=== PATIENT | male | born 1945 | race Caucasian/White ===

== ENCOUNTER 2016-05-26 13:04 | Emergency (ER) | payer OTHER ==
[2016-05-26 14:02] LABS: #Basophils 0.1 thou/uL (0.0-0.2); #Lymphocytes 1.5 thou/uL (1.20-3.40); #Monocytes 0.7 thou/uL (0.11-0.59); #Neutrophils 5.1 thou/uL (1.40-6.50); %Basophils 0.7 % (0.0-1.0); %Eosinophils 0.4 % (0.0-10.0); %Monocytes 9.4 % (0.0-10.0); Hematocrit 39.4 % (42.0-52.0); Mean Platelet Volume 6.3 fL (7.4-10.4); Red Blood Cell (RBC) Count 4.27 mill/uL (4.70-6.10); White Blood Cell (WBC) Count 7.3 thou/uL (4.8-10.8)
[2016-05-26] MEDS ORDERED: Meclizine HCl 25 MG TAB ONE (14:11)
[2016-05-26 14:21] LABS: ALT (SGPT) 26 U/L (0-55); AST (SGOT) 22 U/L (5-34); Alkaline Phosphatase 82 U/L (40-150); Anion Gap 17 mmol/L (10-20); BUN (Urea Nitrogen) 17 mg/dL (8.4-25.7); Bilirubin, Total 0.5 mg/dL (0.2-1.2); Calc. Creatinine Clearance 0 mL/min (70-130); Calcium 9.7 mg/dL (7.8-10.44); Carbon Dioxide 25 mmol/L (23-31); Chloride 100 mmol/L (98-107); Estimated GFR-MDRD 88; Globulin 3.1 g/dL (2.4-3.5); Protein, Total 7.2 g/dL (5.8-8.1)
[2016-05-26 14:23] LABS: Troponin I 0.017 ng/mL (< 0.028)
--- NOTE | 2016-05-26 14:36 | CT ---
CT BRAIN WITHOUT CONTRAST: Date: 05/26/16 HISTORY: Dizziness, lightheadedness, rubbery feeling legs. COMPARISON: [facility]. TECHNIQUE: CT brain performed without contrast. 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 Ventricular system is normal. No midline shift or mass effect. No acut e territorial infarct or hemorrhage. Calvarium is intact. The paranasal sinuses and mastoids are angeline ar. 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 No definite acute infarction or hemorrhag e. POS: [facility]
== END 2016-05-26 14:55 | disposition home or self-care (01) ==
LOC: EDBD 13:04 → NAV ERS 13:04
DX: H81.391 Other peripheral vertigo, right ear (principal); I10 Essential (primary) hypertension; I25.10 Atherosclerotic heart disease of native coronary artery without angina pectoris; E11.9 Type 2 diabetes mellitus without complications; E78.5 Hyperlipidemia, unspecified; Z79.84 Long term (current) use of oral hypoglycemic drugs; Z79.82 Long term (current) use of aspirin; Z79.899 Other long term (current) drug therapy
CPT/HCPCS: 70450; 80053; 82553; 84484; 85025; 93005

== ENCOUNTER 2016-07-27 14:19 | Emergency (ER) | payer OTHER | END 2016-07-27 14:59 | disposition home or self-care (01) | LOC: NAV ERS 14:19 | DX: T63.2X1A Toxic effect of venom of scorpion, accidental (unintentional), initial encounter (principal); I25.10 Atherosclerotic heart disease of native coronary artery without angina pectoris; E11.9 Type 2 diabetes mellitus without complications; E78.5 Hyperlipidemia, unspecified; I10 Essential (primary) hypertension; Z79.82 Long term (current) use of aspirin; Z79.84 Long term (current) use of oral hypoglycemic drugs; Z79.899 Other long term (current) drug therapy | CPT/HCPCS: 99282 ==

== ENCOUNTER 2016-09-29 16:18 | Emergency (ER) | payer OTHER ==
[2016-09-29] MEDS ORDERED: Sodium Chloride 0.9% 1,000 ML ONE ×3 (16:40→17:44)
[2016-09-29 17:00] LABS: #Basophils 0.1 thou/uL (0.0-0.2); #Eosinphils 0.1 thou/uL (0.0-0.7); #Lymphocytes 1.6 thou/uL (1.20-3.40); #Monocytes 0.9 thou/uL (0.11-0.59); #Neutrophils 6.2 thou/uL (1.40-6.50); %Basophils 1.6 % (0.0-1.0); %Eosinophils 0.9 % (0.0-10.0); %Lymphocytes 17.7 % (21.0-51.0); %Monocytes 9.8 % (0.0-10.0); %Neutrophils 70.2 % (42.0-75.0); Hemoglobin 13.1 g/dL (14.0-18.0); Mean Corpuscular HGB CONC 32.8 g/dL (32.0-36.0); Mean Corpuscular Hemoglobin 30.4 pg (27.0-31.0); Mean Corpuscular Volume 92.5 fl (80.0-94.0); Mean Platelet Volume 7.2 fL (7.4-10.4); Platelet Count 193 thou/uL (130-400); RBC Distribution Width 12.9 % (11.5-14.5); Red Blood Cell (RBC) Count 4.31 mill/uL (4.70-6.10); White Blood Cell (WBC) Count 8.8 thou/uL (4.8-10.8)
[2016-09-29 17:05] LABS: ALT (SGPT) 24 U/L (8-55); AST (SGOT) 31 U/L (5-34); Albumin 4.5 g/dL (3.4-4.8); Alkaline Phosphatase 77 U/L (40-150); Anion Gap 19 mmol/L (10-20); BUN (Urea Nitrogen) 41 mg/dL (8.4-25.7); Bilirubin, Total 0.7 mg/dL (0.2-1.2); Calc. Creatinine Clearance 0 mL/min (70-130); Calcium 9.9 mg/dL (7.8-10.44); Carbon Dioxide 20 mmol/L (23-31); Chloride 103 mmol/L (98-107); Estimated GFR-MDRD 35; Globulin 3.1 g/dL (2.4-3.5); Glucose 159 mg/dL (83-110); Magnesium 1.9 mg/dL (1.6-2.6); Potassium 4.7 mmol/L (3.5-5.1); Protein, Total 7.6 g/dL (5.8-8.1); Sodium 137 mmol/L (136-145)
[2016-09-29 17:06] LABS: Troponin I Less than 0.010 ng/mL (< 0.028)
[2016-09-29 17:42] LABS: CKMB 13.5 ng/mL (0-6.6)
== END 2016-09-29 19:17 ==
LOC: NAV ERS 16:18
DX: N17.9 Acute kidney failure, unspecified (principal); M62.82 Rhabdomyolysis; I25.10 Atherosclerotic heart disease of native coronary artery without angina pectoris; E11.9 Type 2 diabetes mellitus without complications; E78.5 Hyperlipidemia, unspecified; I10 Essential (primary) hypertension; M19.90 Unspecified osteoarthritis, unspecified site; Z79.84 Long term (current) use of oral hypoglycemic drugs; Z79.899 Other long term (current) drug therapy; Z79.82 Long term (current) use of aspirin
CPT/HCPCS: 36416; 80053; 82553; 83735; 84443; 84484; 85025; 93005; 96360; 96361; 36415-59; J7050

== ENCOUNTER 2016-10-18 17:19 | Emergency (ER) | payer OTHER ==
[2016-10-18] MEDS ORDERED: Lidocaine 1% 20 ML MDV ONE (17:48)
--- NOTE | 2016-10-18 18:14 | RAD ---
TWO VIEWS LEFT SECOND DIGIT: 10/18/16 HISTORY: Injury by table saw. AP and lateral views left second digit is obtained. Soft tissue injury is seen anterior to the second digit middle phalanx. The middle phalanx does not appear to be fractured or cut by the saw. No other bony lesions seen. IMPRESSION: Soft tissue injury noted in the second digit left hand. POS: [facility]
[2016-10-18] MEDS ORDERED: Bacitracin Zinc 1 Packet ONE (18:33)
[2016-10-18] MEDS ORDERED: Cephalexin 250 MG CAP ONE (18:35)
== END 2016-10-18 18:52 | disposition home or self-care (01) ==
LOC: NAV ERS 17:19
DX: S61.211A Laceration without foreign body of left index finger without damage to nail, initial encounter (principal); I25.10 Atherosclerotic heart disease of native coronary artery without angina pectoris; E11.9 Type 2 diabetes mellitus without complications; E78.5 Hyperlipidemia, unspecified; I10 Essential (primary) hypertension; Z79.82 Long term (current) use of aspirin; Z79.84 Long term (current) use of oral hypoglycemic drugs; Z79.899 Other long term (current) drug therapy; W45.8XXA Other foreign body or object entering through skin, initial encounter
CPT/HCPCS: 12002; J2001

== ENCOUNTER 2017-05-01 07:48 | Emergency (ER) | payer OTHER ==
[2017-05-01] MEDS ORDERED: Ibuprofen 800 MG TAB ONE (08:25)
[2017-05-01 09:17] LABS: Bilirubin Negative (Negative); Blood, Urine Negative (Negative); Clarity Clear (Clear); Glucose, Urine (Dipstick) Negative (Negative); Leukocyte Small (Negative); Nitrite Negative (Negative); Protein, Urine (Dipstick) Negative (Neg-Trace); Urobilinogen 0.2 mg/dL (0.2-1.0); pH, Urine 5.5 (5.0-9.0)
[2017-05-01 09:32] LABS: Bacteria/HPF Rare-Few HPF (None Seen); RBC/HPF None Seen HPF (0-3); Squamous Epithelial 0-3 HPF (0-3)
[2017-05-01 09:33] LABS: Other Microscopic Description NO
== END 2017-05-01 09:27 | disposition home or self-care (01) ==
LOC: NAV ERS 07:48
DX: M62.830 Muscle spasm of back (principal); I10 Essential (primary) hypertension; E11.9 Type 2 diabetes mellitus without complications; E78.5 Hyperlipidemia, unspecified; Z79.82 Long term (current) use of aspirin; Z79.84 Long term (current) use of oral hypoglycemic drugs; Z79.899 Other long term (current) drug therapy
CPT/HCPCS: 81003; 81015; 99283

== ENCOUNTER 2018-11-30 12:11 | Emergency (ER) | payer OTHER ==
[2018-11-30 12:53] LABS: Bilirubin Negative (Negative); Blood, Urine Large (Negative); Glucose, Urine (Dipstick) 250 mg/dL (Negative); Leukocyte Trace (Negative); Nitrite Negative (Negative); Protein, Urine (Dipstick) Trace mg/dL (Neg-Trace); Urobilinogen 0.2 mg/dL (Less than 2)
[2018-11-30 13:10] LABS: #Basophils 0.1 thou/uL (0.0-0.2); #Lymphocytes 1.3 thou/uL (1.20-3.40); #Monocytes 0.6 thou/uL (0.11-0.59); #Neutrophils 3.5 thou/uL (1.40-6.50); %Basophils 1.1 % (0.0-1.0); %Eosinophils 0.8 % (0.0-10.0); %Lymphocytes 23.5 % (21.0-51.0); %Monocytes 10.5 % (0.0-10.0); %Neutrophils 64.1 % (42.0-75.0); Hemoglobin 12.3 g/dL (14.0-18.0); Mean Corpuscular HGB CONC 32.1 g/dL (32.0-36.0); Mean Corpuscular Hemoglobin 30.8 pg (27.0-31.0); Mean Corpuscular Volume 96.2 fL (78.0-98.0); Mean Platelet Volume 7.1 fL (7.4-10.4); Platelet Count 173 thou/uL (130-400); RBC Distribution Width 12.3 % (11.5-14.5); Red Blood Cell (RBC) Count 3.99 mill/uL (4.70-6.10); White Blood Cell (WBC) Count 5.4 thou/uL (4.8-10.8)
[2018-11-30 13:13] LABS: Clarity SL HAZY (Clear)
[2018-11-30 13:15] LABS: PTT 28.8 SEC (22.9-36.1); Prothrombin Time 13.1 SEC (12.0-14.7)
[2018-11-30 13:15] LABS: RBC/HPF 21-50 HPF (0-3); WBC/HPF None Seen HPF (0-3)
[2018-11-30 13:20] LABS: ALT (SGPT) 30 U/L (8-55); AST (SGOT) 33 U/L (5-34); Albumin 4.3 g/dL (3.4-4.8); Alkaline Phosphatase 58 U/L (40-150); Anion Gap 15 mmol/L (10-20); BUN (Urea Nitrogen) 19 mg/dL (8.4-25.7); Bilirubin, Total 0.3 mg/dL (0.2-1.2); Calc. Creatinine Clearance 0 mL/min (70-130); Carbon Dioxide 26 mmol/L (23-31); Chloride 102 mmol/L (98-107); Estimated GFR-MDRD 89; Globulin 2.6 g/dL (2.4-3.5); Glucose 164 mg/dL (83-110); Potassium 4.3 mmol/L (3.5-5.1); Protein, Total 6.9 g/dL (5.8-8.1); Sodium 139 mmol/L (136-145)
--- NOTE | 2018-11-30 13:31 | CT ---
EXAM: Abdomen and pelvic CT scan without contrast: HISTORY: Hematuria after urinating COMPARISON: None FINDINGS: Bilateral pleural-based honeycombing and some subtle calcific changes with bilateral bullous changes evidence for chronic change. Liver: Unremarkable. Gallbladder:Unremarkable. Pancreas:Unremarkable Spleen:Unremarkable. Adrenal glands:Unremarkable. Kidneys:No renal calculus or acute obstruction.No solid or cystic mass. No evidence of bowel obstruction. Postop changes in the region of the cecum. Small area of calcification in the mesentery probably a calcified area of fat necrosis. Multilevel variable severity lumbar spinal canal stenosis. Moderate left colon and sigmoid colon dive rticulosis without acute diverticulitis. No CT evidence for acute appendicitis. Prominently contracted. No abscess, adenopathy, or abnormal fluid collection within the abdomen or pelvis. IMPRESSION: No significant acute process in the abdomen or pelvis. Chronic changes in the visualized lungs. Other findings as above.
== END 2018-11-30 14:10 | disposition home or self-care (01) ==
LOC: NAV ERS 12:11
DX: R31.0 Gross hematuria (principal); I25.10 Atherosclerotic heart disease of native coronary artery without angina pectoris; E11.9 Type 2 diabetes mellitus without complications; E78.5 Hyperlipidemia, unspecified; M19.90 Unspecified osteoarthritis, unspecified site; Z87.891 Personal history of nicotine dependence; Z79.82 Long term (current) use of aspirin; Z79.899 Other long term (current) drug therapy; Z85.038 Personal history of other malignant neoplasm of large intestine; Z79.84 Long term (current) use of oral hypoglycemic drugs
CPT/HCPCS: 74176; 80053; 81003; 81015; 85025; 85610; 85730; 87086; A4353